=== PATIENT | female | born 1995 | race American Indian/Alaskan Native ===

== ENCOUNTER 2017-05-15 00:16 | Emergency (ER) | payer SELFPAY ==
--- NOTE | 2017-05-15 02:58 | XRay Report ---
FINAL REPORT PROCEDURE: XR CHEST ROUTINE 2V TECHNIQUE: PA and lateral chest radiographs were obtained. CPT 79139 HISTORY: Cough, Upper Resp, Form Signed, Get Report COMPARISON: No prior studies are available for comparison. FINDINGS: Heart: Normal. Mediastinum/Vessels: Normal. Lungs/Pleural space: Normal. Bony thorax: No acute osseous abnormality. Other: IMPRESSION: Normal examination.
== END 2017-05-15 02:10 | disposition left against medical advice (07) ==
LOC: ED 00:16
DX: R05 Cough (principal); R09.81 Nasal congestion; Z53.21 Procedure and treatment not carried out due to patient leaving prior to being seen by health care provider
CPT/HCPCS: 71020

== ENCOUNTER 2018-08-14 00:43 | Emergency (ER) | payer SELFPAY ==
[2018-08-14 01:28] VITALS: BP 142/84
--- NOTE | 2018-08-14 02:55 | Emergency Department Report ---
HPI - General Chief Complaint: Skin/Abscess/Foreign Body Time Seen by Provider: 08/14/18 02:43 - HPI HPI: This is a 23-year-old female here reports that she has a lump under her left breast 1 day. She says she has had similar lump in the past and it just goes away and she never said the treatment for this. She said this is the first time that it is painful. He reports pain 7/10 with touch. Reports Dull pain. Pain is less without touch. Denies any nausea or vomiting. Denies any drainage from site. Denies any fever or chills. Denies history or maternal or paternal family history of breast cancer. Denies taking any medication. Patient denies any medical problems ED Past Medical Hx - Past Medical History Previous Medical History?: No - Surgical History Past Surgical History?: No - Family History Family history: hypertension - Social History Smoking Status: Former Smoker Substance Use Type: Alcohol - Medications Home Medications: Home Medications Medication Instructions Recorded Confirmed Last Taken Type Naproxen [Naprosyn] 500 mg PO BID PRN #12 tablet 08/14/18 Unknown Rx cephALEXin [Keflex] 500 mg PO Q8HR 10 Days #30 cap 08/14/18 Unknown Rx ED Review of Systems ROS: Stated complaint: BREAST PAIN Other details as noted in HPI Constitutional: denies: chills Respiratory: denies: cough, shortness of breath, SOB with exertion, SOB at rest, stridor, wheezing Cardiovascular: denies: chest pain, palpitations, dyspnea on exertion, edema, syncope Gastrointestinal: denies: nausea, vomiting Genitourinary: other (she reports lump this recurring to her left breast. Painful) Musculoskeletal: denies: back pain, joint swelling, arthralgia, myalgia, other Skin: denies: rash Neurological: denies: headache Physical Exam - Physical Exam Vital Signs: Vital Signs 08/14/18 01:24 Temperature 98.4 F Pulse Rate 93 H Respiratory 16 Rate Blood Pressure 142/84 O2 Sat by Pulse 98 Oximetry General: This is a 23-year-old female well-nourished well-developed in no acute distress. Physical Exam: Head: Normocephalic atraumatic. Neck: No cervical idiopathic, full range of motion and supple Mouth: Oral mucosa moist, tongue is normal, Lungs: Clear are to auscultated bilaterally, no rhonchi wheezes or rales. No use of accessory muscles. Tender to palpate to injury to the area to left chest and left breast. CV: S1, S2. Regular rate rhythm negative murmur. BREASTS exam: Left breast No chest deformity, asymmetry. Normal contours. Area lower normal Dime size indurated and nonfluctuant mass felt to left breast at 7 o'clock position left inner quadrant .tenderness at the site, no axillary adenopathy. No nipple discharge bilateral. Right breast exam is normal. Skin: Clean dry and intact, no rash or lesions. Extremity: No cce. + 2 pulses in all extremities, no neurovascular compromise. Skin: Clean dry and intact, no rashes no lesions Mood: Normal mood and behavior Body Four View: 1 - Indurated nonfluctuant abscess area without erythema distended appropriate at 7 o'clock position left inner quadrant breast. No drainage. ED Course Vital Signs 08/14/18 01:24 Temperature 98.4 F Pulse Rate 93 H Respiratory 16 Rate Blood Pressure 142/84 O2 Sat by Pulse 98 Oximetry - Reevaluation(s) Reevaluation #1: 08/14/18 03:52 Patient given Keflex 500 mg and Naprosyn 5 mg emergency room. Patient states treated for cellulitis and I told her that she will need to follow up with [facility] family practice and [facility] for them to schedule her to have a mammogram if lump does not go away. I also told to put warm compresses to a ffected area. Patient is stable and is no acute distress ED Medical Decision Making - Medical Decision Making This is a 23-year-old female here report that she has painful lump to her left breast. Breast exam done and right breast exam is normal left breast exam normal except that she has a dime size area to left inner quadrant at 7 o'clock position that is tender to palpation and indurated with no fluctuance. Mild erythema. Patient given naproxen 500 mg by mouth and Flexeril as milligrams here in emergency room to treat cellulitis. She was informed that she is to follow-up at primary care and [facility] at [facility] for evaluation and possible referral for mammogram if antibiotic does not help this. Patient says she has had multiple episodes but this is a first-time it has been painful. She voiced understanding of diagnosis, treatment plan and need to follow up. I told her to follow up on 08/21/2018 to call in the morning and schedule an appointment. Patient given antibiotic for Keflex and naproxen. - Differential Diagnosis breasts mass benign versus malignant, abscess, cellulitis Critical care attestation.: If time is entered above; I have spent that time in minutes in the direct care of this critically ill patient, excluding procedure time. ED Disposition Clinical Impression: Cellulitis of left breast, Breast lump on left side at 7 o'clock position Disposition: - TO HOME OR SELFCARE Is pt being admited?: No Does the pt Need Aspirin: No Condition: Stable Instructions: Breast Self-exam (ED), Breast Mass (ED), Cellulitis (ED), Mammogram (ED) Additional Instructions: Please take naproxen for pain and Keflex antibiotic. Apply warm compresses to affected area to left breast 3-4 times a day to facilitate softening and drainage. He is follow-up with [facility] primary care and [facility] as instructed. He will need to be evaluated and will probably need a mammogram if painful areas for left breast is not resolved with antibiotic. These call in the morning to schedule an appointment for follow-up visits on 08/20/2018 If Condition worsens, if she developed fever, increase in swelling and pain, please return to the emergency room. Referrals: PRIMARY MD [facility] [Primary Care Provider] - 3-5 Days [facility] [Outside] - 08/20/18 ([facility] and primary care) Forms: Work/School Release Form(ED)
[2018-08-14] MEDS ORDERED: KEFLEX PO ONE (03:50)
[2018-08-14] MEDS ORDERED: NAPROSYN PO ONE (03:51)
[2018-08-14] MEDS ORDERED: MOTRIN PO ONE (04:35)
== END 2018-08-14 05:03 | disposition home or self-care (01) ==
LOC: ED 00:43
DX: N61.0 Mastitis without abscess (principal); N63.24 Unspecified lump in the left breast, lower inner quadrant; Z87.891 Personal history of nicotine dependence
CPT/HCPCS: 99282